=== PATIENT | male | born 1955 | race Caucasian/White ===

== ENCOUNTER 2017-08-22 07:31 | Inpatient (IN) | payer OTHER ==
[~2017-08-22] VITALS: Ht 175.3 cm; Wt 65.8 kg
[2017-08-22 08:22] LABS: CARBON DIOXIDE 30 mEq/L (21-32); CHLORIDE 104 mEq/L (98-107); CREATINE KINASE 229 IU/L (39-308); CREATINE KINASE MB FRACTION 6.1 ng/mL (0.5-3.6); ETHANOL BLOOD < 10 mg/dL; TROPONIN I < 0.02 ng/mL (0.00-0.04)
[2017-08-22 08:25] LABS: BASOPHILS % 0.7 % (0.0-2.0); HEMATOCRIT. 45.4 % (42.0-52.0); HEMOGLOBIN. 15.4 g/dL (14.0-18.0); LYMPHOCYTES % 27.9 % (20.0-50.0); MEAN CORPUSCULAR HEMOGLOBIN 28.8 pg (28.0-32.0); MEAN PLATELET VOLUME 10.1 fl (7.4-10.4); MONOCYTES % 10.4 % (2.0-8.0); PLATELET 157 x1000/uL (130-400); RED BLOOD CELL COUNT 5.34 mill/uL (4.7-6.1); RED CELL DISTRIBUTION WIDTH 14.1 % (11.6-14.6)
[2017-08-22 08:36] LABS: INR 1.1; PARTIAL THROMBOPLASTIN TIME 25.5 sec (23.4-31.0); PROTHROMBIN TIME 11.8 sec (9.4-11.6)
[2017-08-22] MEDS ORDERED: SODIUM CHLORIDE 0.9% 1,000 ML IV ONE (08:39)
[2017-08-22 09:14] LABS: CLARITY URINE CLEAR (CLEAR); COLOR URINE YELLOW (YELLOW); GLUCOSE URINE NEGATIVE (NEGATIVE); KETONES URINE NEGATIVE (NEGATIVE); LEUKOCYTE ESTERASE URINE NEGATIVE (NEGATIVE); NITRITE URINE NEGATIVE (NEGATIVE); OCCULT BLOOD URINE NEGATIVE (NEGATIVE); PROTEIN URINE NEGATIVE (NEGATIVE); SPECIFIC GRAVITY URINE 1.013 (1.005-1.030); UROBILINOGEN URINE 0.2 E.U./dL (0.2-1.0)
[2017-08-22 09:43] LABS: *AMPHETAMINES SCREEN URINE NEGATIVE (NEGATIVE); *BARBITURATES SCREEN URINE NEGATIVE (NEGATIVE); *BENZODIAZEPINES SCREEN URINE NEGATIVE (NEGATIVE); *COCAINE SCREEN URINE NEGATIVE (NEGATIVE); CANNABINOID URINE SCREEN NEGATIVE (NEGATIVE); METHADONE URINE SCREEN NEGATIVE (NEGATIVE); OPIATES URINE SCREEN NEGATIVE (NEGATIVE); PHENCYCLIDINE URINE SCREEN NEGATIVE (NEGATIVE)
[2017-08-22] MEDS ORDERED: KETOROLAC 15MG/ML VIAL IV PRN (12:00)
[2017-08-22] MEDS ORDERED: CLONIDINE 0.1MG TABLET PO PRN (12:00)
[2017-08-22] MEDS ORDERED: DOCUSATE SODIUM 100MG CAPSULE PO PRN (12:00)
[2017-08-22] MEDS ORDERED: MAGNESIUM/ALUMINUM HYDROXIDE/SIMETHICONE 30ML UDC PO PRN (12:00)
[2017-08-22] MEDS ORDERED: IPRATROPIUM/ALBUTEROL 0.5-3(2.5)MG/3ML NEB INH PRN (12:00)
[2017-08-22] MEDS ORDERED: GUAIFENESIN 200MG/10ML SUGAR FREE UDC PO PRN (12:00)
[2017-08-22] MEDS ORDERED: TRAMADOL 50MG TABLET PO PRN (12:00)
[2017-08-22] MEDS ORDERED: NA PHOS,M-B/NA PHOS,DI-BA ENEMA 118ML PR PRN (12:00)
[2017-08-22] MEDS ORDERED: DIPHENHYDRAMINE 50MG/ML VIAL IV PRN (12:00)
[2017-08-22] MEDS ORDERED: ZOLPIDEM TARTRATE 5MG TABLET PO PRN (12:00)
[2017-08-22] MEDS ORDERED: ONDANSETRON HCL 4MG/2ML VIAL IV PRN (12:00)
[2017-08-22] MEDS ORDERED: LORAZEPAM 0.5MG TABLET PO PRN (12:00)
[2017-08-22] MEDS ORDERED: ACETAMINOPHEN 325MG TABLET PO PRN (12:00)
[2017-08-22] MEDS ORDERED: NITROGLYCERIN 0.4MG TABLET SL SL PRN (12:00)
[2017-08-22] MEDS ORDERED: PANTOPRAZOLE SODIUM 40 MG/VIAL IV SCH ×2 (14:00→21:00)
[2017-08-22] MEDS: ENOXAPARIN 40MG/0.4ML SYR SUBCUT SCH (14:00)
[2017-08-22 15:18] VITALS: BP 123/69
[2017-08-22] MEDS ORDERED: TADA5TAB PO (15:35)
[2017-08-22] MEDS ORDERED: PROT40 PO (15:36)
[2017-08-22 16:00] VITALS: BP 114/68
[2017-08-22] MEDS: SUCRALFATE 1 G/10 ML UDC PO SCH ×2 (17:24→22:01)
[2017-08-22 17:54] LABS: CREATINE KINASE 240 IU/L (39-308); TROPONIN I < 0.02 ng/mL (0.00-0.04)
[2017-08-22 20:00] VITALS: BP 118/69
[2017-08-23] VITALS: BP 115/79
[2017-08-23 01:11] LABS: CREATINE KINASE 237 IU/L (39-308); CREATINE KINASE MB FRACTION 6.3 ng/mL (0.5-3.6); TROPONIN I < 0.02 ng/mL (0.00-0.04)
[2017-08-23 04:00] VITALS: BP 110/72
[2017-08-23] MEDS: SUCRALFATE 1 G/10 ML UDC PO SCH (06:19)
[2017-08-23 08:00] VITALS: BP 115/78
[2017-08-23] MEDS: ENOXAPARIN 40MG/0.4ML SYR SUBCUT SCH (08:35)
== END 2017-08-23 12:00 | disposition home or self-care (01) | DRG 312 ==
LOC: ER 08:05 → 8WST 09:05 → EDBEDREQ 09:08 → EDBEDREQTM 09:08 → ENRESERV 10:38
PROVIDERS: ADMIT Internal Medicine; ATTEND Internal Medicine
DX: R55 Syncope and collapse (principal); K21.9 Gastro-esophageal reflux disease without esophagitis; R07.89 Other chest pain; R04.0 Epistaxis; Z79.82 Long term (current) use of aspirin
CPT/HCPCS: 36415; 71010; 80053; 80061; 80305; 81003; 82550; 82553; 83036; 83690; 83880; 84443; 84484; 85025; 85379; 85610; 85730; 93005; 93970; C9113; G0482; J1650; J7030